=== PATIENT | male | born 1980 | race Caucasian/White ===

== ENCOUNTER 2021-12-15 10:58 | Emergency (ER) | payer OTHER ==
[2021-12-15] MEDS ORDERED: Ibuprofen 400 MG Tab PO ONE (11:51)
== END 2021-12-15 12:30 | disposition home or self-care (01) ==
LOC: JP.ED 10:58
DX: S29.011A Strain of muscle and tendon of front wall of thorax, initial encounter (principal); F17.200 Nicotine dependence, unspecified, uncomplicated
CPT/HCPCS: 71045; 93005; 93010; 99283; 99285; A9270

== ENCOUNTER 2024-04-24 08:15 | Day surgery (SDC) | payer OTHER ==
[2024-04-24] MEDS ORDERED: Midazolam 1 MG/ML 2 ML SDV ONE (08:46)
[2024-04-24] MEDS ORDERED: Propofol 200 MG/20 ML SDV ONE ×2 (08:46→10:21)
[2024-04-24] MEDS ORDERED: fentaNYL 50 MCG/ML SDV ONE (08:46)
[2024-04-24] MEDS: Sodium Chloride 0.9% 1,000 ML IV SCH (08:59)
== END 2024-04-24 11:29 | disposition home or self-care (01) ==
LOC: JP.SDS 08:15
PROVIDERS: ATTEND Surgery
DX: K21.00 Gastro-esophageal reflux disease with esophagitis, without bleeding (principal); K31.7 Polyp of stomach and duodenum; K22.89 Other specified disease of esophagus; F17.200 Nicotine dependence, unspecified, uncomplicated
CPT/HCPCS: 43239; J2250; J2704; J3010; J7030